=== PATIENT | female | born 1975 | race Caucasian/White ===

== ENCOUNTER 2021-04-11 01:01 | Emergency (ER) | payer SELFPAY ==
[2021-04-11] MEDS ORDERED: ASPIRIN 325 MG TABLET PO STA (01:20)
[2021-04-11] MEDS ORDERED: ONDANSETRON 4 MG/2 ML VIAL IVP STA ×2 (01:20→02:00)
[2021-04-11] MEDS ORDERED: SODIUM CHLORIDE 0.9% 1,000 ML IV STA (01:20)
--- NOTE | 2021-04-11 01:21 | ED Physician Documentation ---
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 Patient was feeling normal yesterday.denies chest pain, fever, cough, leg swelling. Review of Systems Ten Systems: 10 systems reviewed and negative Constitutional: denies: Fever, Chills Cardiac: reports: Palpitations. denies: Chest pain / pressure Respiratory: reports: Dyspnea. denies: Cough GI: reports: Nausea. denies: Vomiting PD PAST MEDICAL HISTORY - Present Medications Home Medications: Ambulatory Orders Medication Instructions Recorded Confirmed amLODIPine [Norvasc] 5 mg PO DAILY 30 Days #30 tablet 04/11/21 - Allergies Allergies/Adverse Reactions: Allergies Allergy/AdvReac Type Severity Reaction Status Date / Time No Known Drug Allergies Allergy Verified 04/11/21 01:38 PD ED PE NORMAL - Vitals Vital signs reviewed: Yes - General General: Alert and oriented X 3, No acute distress, Well developed/nourished - HEENT HEENT: Atraumatic, PERRL, EOMI - Neck Neck: Supple, no meningeal sign - Cardiac Cardiac: Other (borderline tachycardic rate, regular rhythm) - Respiratory Respiratory: No respiratory distress, Clear bilaterally - Abdomen Abdomen: Non tender, Non distended - Derm Derm: Normal color - Extremities Extremities: No deformity, No edema - Neuro Neuro: Alert and oriented X 3 - Psych Psych: Normal mood, Normal affect Results - Vitals Vitals: Vital Signs - 24 hr 04/11/21 04/11/21 04/11/21 01:05 01:10 01:42 Temperature 36.2 C L Heart Rate 68 90 Respiratory 15 17 Rate Blood Pressure 201/99 H 163/97 H Blood Pressure 163/97 H [Right] O2 Saturation 99 98 04/11/21 04/11/21 04/11/21 02:04 02:16 02:24 Temperature 36.8 C Heart Rate 108 H 105 H Respiratory 14 11 L Rate Blood Pressure 164/103 H 171/101 H Blood Pressure [Right] O2 Saturation 99 100 04/11/21 04/11/21 04/11/21 02:44 03:09 03:44 Temperature 36.7 C Heart Rate 104 H 110 H 108 H Respiratory 13 22 16 Rate Blood Pressure 186/102 H 177/95 H Blood Pressure [Right] O2 Saturation 99 99 98 Oxygen O2 Source Room air - EKG (time done) 0107 Rate: Rate (enter#) (108) Rhythm: Sinus tachycardia [place]: Normal Intervals: Normal MD QRS: Normal Ischemia: Other (anterior RC without reciprocal changes. high voltages c/w LVH) 0252 Rate: Rate (enter#) (93) Rhythm: NSR [place]: Normal Intervals: Normal MD QRS: Normal Ischemia: Other (LVH and RC in anterior leads without reciprocal changes) Compare to prior EKG: Unchanged from prior EKG - Labs Labs: Microbiology 04/11/21 02:51 Occult Blood - Final Stool Laboratory Tests 04/11/21 04/11/21 04/11/21 01:23 01:23 01:23 WBC 7.6 RBC 4.34 Hgb 10.5 L Hct 34.0 L MCV 78.3 L MCH 24.2 L MCHC 30.9 L RDW 17.5 H Plt Count 258 MPV 11.4 H Neut # (Auto) 4.5 Lymph # (Auto) 2.3 [place] # (Auto) 0.5 Eos # (Auto) 0.2 Baso # (Auto) 0.0 Absolute Nucleated RBC 0.00 Nucleated RBC % 0.0 Platelet Estimate NORMAL (130-450,000) Sodium 134 L Potassium 3.5 Chloride 100 L Carbon Dioxide 23 Anion Gap 11.0 BUN 24 H Creatinine 0.8 Estimated GFR (MDRD) 78 L Glucose 131 H Calcium 8.9 Total Bilirubin 0.6 AST 18 ALT 10 Alkaline Phosphatase 57 Troponin I High Sens 5.2 Total Protein 8.1 Albumin 4.6 Globulin 3.5 Albumin/Globulin Ratio 1.3 Lipase 25 04/11/21 02:35 WBC RBC Hgb Hct MCV MCH MCHC RDW Plt Count MPV Neut # (Auto) Lymph # (Auto) [place] # (Auto) Eos # (Auto) Baso # (Auto) Absolute Nucleated RBC Nucleated RBC % Platelet Estimate Sodium Potassium Chloride Carbon Dioxide Anion Gap BUN Creatinine Estimated GFR (MDRD) Glucose Calcium Total Bilirubin AST ALT Alkaline Phosphatase Troponin I High Sens 10.0 Total Protein Albumin Globulin Albumin/Globulin Ratio Lipase PD MEDICAL DECISION MAKING - ED course ED course: 46-year-old woman presents with chest palpitations, shortness of breath and nausea. Will evaluate for cardiac etiology. Two EKGs and two sets of troponin negative. patient improved with IVF and zofran. return precautions discussed. will add amlodipine to BP meds. 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 Departure - Departure Disposition: Home, Self Care Clinical Impression: Nausea, Palpitations, Dizziness Condition: Good Instructions: ED Palpitations Prescriptions: amLODIPine [Norvasc] 5 mg PO DAILY 30 Days #30 tablet Comments: You were seen in the emergency department for evaluation of dizziness, nausea, and palpitations. Your labwork was normal except for anemia. We gave you fluids and zofran, a nausea medicine. Your blood pressure was high and I am recommending you add amlodipine, another blood pressure medicine in addition to your losartan. Please return to the ED if you have any new or worsening symptoms or other concerns. You can see a social welfare research worker during the daytime from 9am-5pm Thursday through Thursday. Le vieron para la evaluacin de vrtigos, de nuseas, y de palpitaciones. Foster trabajo de laboratorio era normal a excepcin de anemia. Te dimos lquidos y zofran, un medicamento para las nuseas. Foster presin arterial era fabian y le recomiendo que agregue amlodipino, otro medicamento para la presin arterial adems de foster losartn. Por favor, regrese a la deso si tiene algn sntoma nuevo o que empeora u otras preocupaciones. Puede carlos a un trabajador social amy el da de 9am-5pm de lunes a viernes.
[2021-04-11 01:38] LABS: MEAN PLATELET VOLUME 11.4 fL (7.9-10.8); MONOCYTES # (AUTO) 0.5 10^3/uL (0.0-1.0)
[2021-04-11 01:47] LABS: ALBUMIN 4.6 g/dL (3.2-5.5); ALBUMIN/GLOBULIN RATIO 1.3 (1.0-2.2); BILIRUBIN,TOTAL 0.6 mg/dL (0.2-1.0); CALCIUM 8.9 mg/dL (8.5-10.3); CREATININE 0.8 mg/dL (0.4-1.0); POTASSIUM 3.5 mmol/L (3.5-5.0); TOTAL PROTEIN 8.1 g/dL (6.7-8.2)
[2021-04-11 01:53] LABS: BASOPHILS % (AUTO) 0.5 %; EOSINOPHILS # (AUTO) 0.2 10^3/uL (0.0-0.7); EOSINOPHILS % (AUTO) 2.9 %; HGB - HEMOGLOBIN 10.5 g/dL (12.0-16.0); LYMPHOCYTES # (AUTO) 2.3 10^3/uL (1.5-3.5); LYMPHOCYTES % (AUTO) 29.8 %; MEAN CORPUSCULAR HEMOGLOBIN 24.2 pg (27.0-31.0); MEAN CORPUSCULAR HGB CONC 30.9 g/dL (32.0-36.0); MEAN CORPUSCULAR VOLUME 78.3 fL (81.0-99.0); MONOCYTES % (AUTO) 6.7 %; NEUTROPHILS # (AUTO) 4.5 10^3/uL (1.5-6.6); NEUTROPHILS % (AUTO) 59.8 %; PLT - PLATELET COUNT 258 10^3/uL (130-450); RED BLOOD COUNT 4.34 10^6/uL (4.20-5.40); RED CELL DISTRIBUTION WIDTH 17.5 % (12.0-15.0); WHITE BLOOD COUNT 7.6 x10^3/uL (4.8-10.8)
[2021-04-11] MEDS ORDERED: ONDANSETRON 4 MG/2 ML VIAL ONE (02:04)
[2021-04-11 02:11] LABS: PLATELET ESTIMATE, MANUAL NORMAL (130-450,000) (NORMAL)
[2021-04-11 03:45] VITALS: BP 177/95
--- NOTE | 2021-04-11 07:51 | XRAY Report ---
PROCEDURE: Chest 1 View X-Ray INDICATIONS: Chest Pain TECHNIQUE: One view of the chest was acquired. COMPARISON: None FINDINGS: Surgical changes and devices: None. Lungs and pleura: No pleural effusions or pneumothorax. Lungs are clear. Mediastinum: Mediastinal contours appear normal. Heart size is normal. Bones and chest wall: No suspicious bony lesions. Overlying soft tissues appear unremarkable. IMPRESSION: No evidence acute pulmonary process. A preliminary report with the above findings was provided at the time of the study by [facility]. Reviewed by: Humphrey Burrell MD on 04/11/2021 7:50 AM PDT Approved by: Humphrey Burrell MD on 04/11/2021 7:50 AM PDT Station ID: [id number]
== END 2021-04-11 04:00 | disposition home or self-care (01) ==
LOC: ED 01:01
DX: R00.2 Palpitations (principal); R42 Dizziness and giddiness; R11.0 Nausea; R00.0 Tachycardia, unspecified
CPT/HCPCS: 36415; 71045; 80053; 82272; 83690; 84484; 85025; 93005; 96374; 99284; A9270; 82274

== ENCOUNTER 2024-06-05 15:03 | Emergency (ER) | payer MEDICAID ==
[2024-06-05 15:23] VITALS: O2SAT 97
--- NOTE | 2024-06-05 15:47 | XRAY Report ---
PROCEDURE: Knee 4+V RT INDICATIONS: Trauma TECHNIQUE: 4 views of the knee(s) were acquired. COMPARISON: None. FINDINGS: Bones: No fractures or dislocations. No suspicious bony lesions. Soft tissues: Small knee joint effusion. No suspicious soft tissue calcifications or masses. IMPRESSION: No acute bony abnormality. Small joint effusion. If there is persistent clinical concern for a radiographically occult fracture, recommend immobilizat ion and repeat imaging in 10 to 14 days. Reviewed by: Bobby Doll MD on 06/05/2024 2:46 PM AKDT Approved by: Bobby Doll MD on 06/05/2024 2:46 PM AKDT Station ID: [id number]
--- NOTE | 2024-06-05 15:58 | ED Physician Documentation ---
History of Present Illness - Stated complaint Stated Complaint: RT KNEE PX - Chief complaint Chief Complaint: Ext Problem - History obtained from History obtained from: Patient, Family - Additonal information Additional information: Elevated blood this is a 49-year-old female who is [place]an-speaking and presents with her daughter today who assists with translation. 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 She denies any falls or specific twisting but does go up and down the stairs many times throughout the day and also kneels and bends over frequently to do her cleaning. She has been taking Tylenol possibly ibuprofen without relief, has not attempted any cool compress or other treatment. She is able to ambulate though it is uncomfortable. The pain is worse when she bends her knee better when it is resting in an extended position. She has not had any calf pain or fullness, no history of DVT or PE. No history of gout, no joint erythema. Patient seen with the assistance of her daughter who provided [place] interpretation. Video outside property agent service was available at bedside however patient preferred to have daughter translate. 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 - Present Medications Home Medications: Ambulatory Orders Medication Instructions Recorded Confirmed amLODIPine [Norvasc] 5 mg PO DAILY 30 Days #30 tablet 04/11/21 Indomethacin [Indocin] 25 mg PO BIDWM #20 cap 06/05/24 - Allergies Allergies/Adverse Reactions: Allergies Allergy/AdvReac Type Severity Reaction Status Date / Time No Known Drug Allergies Allergy Verified 06/05/24 15:14 - Social History Does the pt smoke?: No Smoking Status: Never smoker Does the pt drink ETOH?: No Does the pt have substance abuse?: No - Immunizations Immunizations are current?: Yes - POLST Patient has POLST: No PD ED PE NORMAL - Vitals Vital signs reviewed: Yes - General General: Alert and oriented X 3, No acute distress, Well developed/nourished - HEENT HEENT: Atraumatic, Moist mucous membranes - Derm Derm: Normal color, Warm and dry - Extremities Extremities: No deformity, No edema, No calf tenderness / cord, Other (Tenderness the patellofemoral tendon and pain across the superior part of the knee with mild swelling no erythema. There is no medial or lateral joint line tenderness, no tenderness of the tibial plateau, no posterior knee tenderness, no calf pain or fullness, no cords.). No: No tenderness to palpate, Normal ROM s pain - Neuro Neuro: Alert and oriented X 3 Results - Vitals Vitals: Vital Signs - 24 hr 06/05/24 06/05/24 15:06 16:32 Temperature 36.3 C L Heart Rate 92 80 Respiratory 18 18 Rate Blood Pressure 146/82 H 131/82 H O2 Saturation 97 97 Oxygen O2 Source Room air - Rads (name of study) No standard instances Relevant Findings:: Final report received PD Medical Decision Making - ED course Complexity details: reviewed results, re-evaluated patient, considered differential, d/w patient, d/w family ED course: This is a 49-year-old female who presented with right knee pain As described in HPI. Differentials considered included overuse injury, patellofemoral syndrome, prepatellar bursitis, ligamentous injury, tendinopathy, meniscal injury, art hritis, among others.We obtained a knee x-ray which shows a small joint effusion, no other acute findings. I discussed with patient that this likely was overuse given her frequent up-and-down the stairs open cannot rule out other injury and recommended supportive measures for now including cool compress, NSAIDs and Tylenol, light compression if comfortable, and avoid up and down stairs for now. If no improvement, follow-up with PCP for possible outpatient physical therapy or MRI. Patient states understanding And was discharged home in stable condition. Departure - Departure Disposition: 01 Home, Self Care Clinical Impression: Strain of right knee Qualifiers: Encounter type: initial encounter Qualified Code(s): S86.911A - Strain of unspecified muscle(s) and tendon(s) at lower leg level, right leg, initial encounter Condition: Good Instructions: ED Meniscal Injury Knee Poss, ED Sprain Knee Prescriptions: Indomethacin [Indocin] 25 mg PO BIDWM #20 cap Comments: Please Rest the knee for the next week, avoid going up and down the stairs as this will exacerbate the pain. Use an ice pack on the knee for 15 minutes every several hours. Please make a follow-up appoint with your primary doctor if this is not improving as they may refer you to physical therapy or obtain additional testing. Forms: PCP List, Activity restrictions Discharge Date/Time: 06/05/24 16:32
[2024-06-05 16:33] VITALS: BP 131/82
== END 2024-06-05 16:32 | disposition home or self-care (01) ==
LOC: ED 15:03
DX: S86.811A Strain of other muscle(s) and tendon(s) at lower leg level, right leg, initial encounter (principal); X50.3XXA Overexertion from repetitive movements, initial encounter; Y92.89 Other specified places as the place of occurrence of the external cause; Y99.0 Civilian activity done for income or pay; I10 Essential (primary) hypertension
CPT/HCPCS: 99283